=== PATIENT | female | born 1945 | race Caucasian/White ===

== ENCOUNTER 2021-09-18 12:53 | Day surgery (SDC) | payer MEDICARE, BC ==
[2021-09-13 08:50] LABS: BASOPHILS # (AUTO) 0.1 X10'3 (0-0.2); EOSINOPHILS # (AUTO) 0.2 X10'3 (0-0.9); EOSINOPHILS % (AUTO) 2.1 % (0-6); HEMATOCRIT 33.7 % (35.0-45.0); HEMOGLOBIN 11.2 g/dl (12.0-16.0); LYMPHOCYTES # (AUTO) 2.1 X10'3 (1.1-4.8); LYMPHOCYTES % (AUTO) 28.4 % (21-51); MEAN CORPUSCULAR HEMOGLOBIN 31.6 PG (27.0-31.0); MEAN CORPUSCULAR HGB CONC 33.1 g/dL (33.0-36.5); MEAN CORPUSCULAR VOLUME 95.3 FL (78-98); MEAN PLATELET VOLUME 7.9 FL (7.4-10.4); MONOCYTES # (AUTO) 0.7 X10'3 (0-0.9); MONOCYTES % (AUTO) 9.4 % (2-12); NEUTROPHILS # (AUTO) 4.3 X10'3 (1.8-7.7); NEUTROPHILS % (AUTO) 59.1 % (42-75); PLATELET COUNT 290 X10'3 (140-440); RED BLOOD COUNT 3.53 X10'6 (4.20-5.60); RED CELL DISTRIBUTION WIDTH 12.8 % (11.5-14.5); WHITE BLOOD COUNT 7.3 X10'3 (4.5-11.0)
[2021-09-13 09:08] LABS: CHLORIDE 107 MMOL/L (99-107); POTASSIUM 4.8 MMOL/L (3.5-5.1); SODIUM 142 MMOL/L (135-145)
[2021-09-13 09:10] LABS: ALBUMIN 3.6 G/DL (3.4-5.0); ANION GAP 8 (8-16); APTT 27 SECONDS (22-32); BLOOD UREA NITROGEN 38 MG/DL (7-18); CALCIUM 8.9 MG/DL (8.5-10.1); CHOL/HDL RATIO 2.7 (0.00-4.99); CHOLESTEROL 176 MG/DL (0-200); GLUCOSE 139 MG/DL (70-104); HDL CHOLESTEROL 65 MG/DL (35-60); LDL CHOLESTEROL 76 MG/DL (50-100); TOTAL CARBON DIOXIDE 27.2 MMOL/L (24-32); TRIGLYCERIDES 135 MG/DL (20-135); eGFR 24 ML/MIN
[~2021-09-18] VITALS: Ht 167.6 cm; Wt 104.2 kg
[2021-09-18] VITALS (8 sets, daily range): BP systolic 124–155; BP diastolic 39–86
[~2021-09-18 12:53] MED LIST: iohexol 350MG/ML 100ml bottle IV ONE; verapamil 2.5 mg/ml inj IV ONE
[2021-09-18] MEDS ORDERED: diphenhydrAMINE 25mg capsule PO PRN (13:20)
[2021-09-18] MEDS ORDERED: LORazepam 0.5 MG tablet PO PRN (13:20)
[2021-09-18] MEDS ORDERED: normal saline 1,000 ML IV SCH (13:20)
[2021-09-18] MEDS ORDERED: OLME5TAB3 PO (13:32)
[2021-09-18] MEDS ORDERED: COLE625T13 PO (13:32)
[2021-09-18] MEDS ORDERED: AMA1T PO (13:32)
[2021-09-18] MEDS ORDERED: ATOR-2 PO (13:32)
[2021-09-18] MEDS ORDERED: AMLO10TA13 PO (13:32)
[2021-09-18] MEDS ORDERED: fentaNYL/PF 50MCG/1 ML 2ML syringe ONE ×2 (15:31→17:36)
[2021-09-18] MEDS ORDERED: midazolam 1 mg/ML 2ml injection ONE ×2 (15:31→17:36)
[2021-09-18] MEDS ORDERED: LIDOcaine 1%/PF 5ML 10 MG/ML VIAL ONE (15:31)
[2021-09-18] MEDS ORDERED: heparin 1,000 UNITS/NS 500ml 500 ML ONE ×2 (15:31)
[2021-09-18] MEDS ORDERED: heparin 1,000unit/ml 10ml vial 10 ML ONE (15:31)
[2021-09-18] MEDS ORDERED: nitroGLYCERIN-Tridil 50MG/D5W 250 ML IV ONE (15:35)
[2021-09-18] MEDS ORDERED: HYDROcodone/acetaminophen 5mg/325mg tablet PO PRN (18:15)
[2021-09-19 07:16] LABS: ISTAT HGB ART 9.9 g/dl (12.0-16.0); ISTAT Hct ART 29 %PCV (35-48); ISTAT O2 SATURATION ARTERIAL 89 % (95-98); ISTAT SOURCE ART
[2021-09-19 10:11] LABS: ISTAT Hct MIX 30 %PCV (35-48); ISTAT O2 SATURATION MIX VENOUS 60 % (60-80); ISTAT SOURCE VEN
== END 2021-09-18 20:20 | disposition home or self-care (01) ==
LOC: SSTAY O 12:53
PROVIDERS: ATTEND Student in an Organized Health Care Education/Training Program
DX: I35.0 Nonrheumatic aortic (valve) stenosis (principal); E11.22 Type 2 diabetes mellitus with diabetic chronic kidney disease; I12.9 Hypertensive chronic kidney disease with stage 1 through stage 4 chronic kidney disease, or unspecified chronic kidney disease; N18.9 Chronic kidney disease, unspecified; E78.5 Hyperlipidemia, unspecified; Z79.84 Long term (current) use of oral hypoglycemic drugs; Z79.899 Other long term (current) drug therapy
CPT/HCPCS: 36415; 80048; 80061; 82803; 82948; 85014; 85025; 85610; 85730; 93005; 93460; 99152; 99153; C1751; C1769; C1894; J1644; J2250; J3010; J3490; J7030; Q0163; Q9967; A5120; A6258; A6402

== ENCOUNTER 2021-10-10 11:13 | Outpatient (CLI) | payer MEDICARE, BC ==
[~2021-10-10] VITALS: Ht 167.6 cm; Wt 104.0 kg
[~2021-10-10 11:13] MED LIST changes: +AMA1T PO; +AMLO10TA13 PO; +ATOR-2 PO; +COLE625T13 PO; +OLME5TAB3 PO; -iohexol 350MG/ML 100ml bottle IV ONE; -verapamil 2.5 mg/ml inj IV ONE
[2021-10-10 11:48] LABS: BASOPHILS # (AUTO) 0.1 X10'3 (0-0.2); EOSINOPHILS # (AUTO) 0.1 X10'3 (0-0.9); EOSINOPHILS % (AUTO) 1.6 % (0-6); HEMOGLOBIN 11.3 g/dl (12.0-16.0); LYMPHOCYTES # (AUTO) 1.8 X10'3 (1.1-4.8); LYMPHOCYTES % (AUTO) 22.3 % (21-51); MEAN CORPUSCULAR HEMOGLOBIN 32.7 PG (27.0-31.0); MEAN CORPUSCULAR HGB CONC 34.2 g/dL (33.0-36.5); MEAN CORPUSCULAR VOLUME 95.8 FL (78-98); MEAN PLATELET VOLUME 8.2 FL (7.4-10.4); MONOCYTES # (AUTO) 0.7 X10'3 (0-0.9); MONOCYTES % (AUTO) 8.9 % (2-12); NEUTROPHILS # (AUTO) 5.5 X10'3 (1.8-7.7); NEUTROPHILS % (AUTO) 66.2 % (42-75); PLATELET COUNT 289 X10'3 (140-440); RED BLOOD COUNT 3.45 X10'6 (4.20-5.60); WHITE BLOOD COUNT 8.2 X10'3 (4.5-11.0)
[2021-10-10 12:01] LABS: APTT 26 SECONDS (22-32)
[2021-10-10 12:05] LABS: ALANINE AMINOTRANSFERASE 21 U/L (12-78); ALBUMIN 3.8 G/DL (3.4-5.0); ALBUMIN/GLOBULIN RATIO 1.1 (1.1-1.5); ALKALINE PHOSPHATASE 87 IU/L (46-116); ANION GAP 10 (8-16); ASPARTATE AMINO TRANSFERASE 14 U/L (10-37); BILIRUBIN,TOTAL 0.7 MG/DL (0.1-1.0); BLOOD UREA NITROGEN 48 MG/DL (7-18); BUN/CREATININE RATIO 23.3 (6.6-38.0); CALCIUM 8.8 MG/DL (8.5-10.1); CHLORIDE 105 MMOL/L (99-107); CREATININE 2.06 MG/DL (0.40-0.90); GLUCOSE 110 MG/DL (70-104); POTASSIUM 4.6 MMOL/L (3.5-5.1); SODIUM 139 MMOL/L (135-145); TOTAL PROTEIN 7.3 G/DL (6.4-8.2); eGFR 23 ML/MIN
[2021-10-10] MEDS ORDERED: iohexol 350 MG/1 ML 200ml bottle ONE (13:11)
[2021-10-10] MEDS ORDERED: metoprolol tartrate 1mg/ml inj IV ONE (13:58)
[2021-10-10] MEDS: normal saline 1000ml 1,000 ML IV SCH ×2 (14:05→15:16)
[2021-10-10 14:10] VITALS: BP 117/65
[2021-10-10 14:20] VITALS: BP 112/55
[2021-10-10 15:14] VITALS: BP 140/60
[2021-10-10] MEDS ORDERED: atropine 0.1mg/ml 10ml syringe IV PRN ×2 (15:15)
[2021-10-10] MEDS ORDERED: atropine 0.1mg/ml 10ml syringe IV ONE (15:15)
[2021-10-10 15:42] VITALS: BP 134/72
== END 2021-10-10 23:59 | disposition home or self-care (01) ==
LOC: 64 CT 11:13
PROVIDERS: ATTEND Internal Medicine Cardiovascular Disease
DX: I08.0 Rheumatic disorders of both mitral and aortic valves (principal); J98.11 Atelectasis; I65.29 Occlusion and stenosis of unspecified carotid artery; I70.0 Atherosclerosis of aorta; N28.1 Cyst of kidney, acquired; K57.30 Diverticulosis of large intestine without perforation or abscess without bleeding; M47.815 Spondylosis without myelopathy or radiculopathy, thoracolumbar region; N28.89 Other specified disorders of kidney and ureter; K42.9 Umbilical hernia without obstruction or gangrene; Z90.49 Acquired absence of other specified parts of digestive tract
CPT/HCPCS: 36415; 71046; 71275; 74174; 80053; 85025; 85610; 85730; 94010; 94727; 94729; J0461; J3490; J7030; Q9967